=== PATIENT | male | born 1955 | race Caucasian/White ===

== ENCOUNTER 2016-06-19 17:27 | Emergency (ER) | payer BC ==
[2016-06-19 17:37] VITALS: BP 120/94
== END 2016-06-19 18:20 | disposition left against medical advice (07) ==
LOC: DL.ED 17:27
DX: Z53.21 Procedure and treatment not carried out due to patient leaving prior to being seen by health care provider (principal)

== ENCOUNTER 2016-11-17 12:29 | Emergency (ER) | payer BC ==
[2016-11-17 12:50] VITALS: BP 136/89
[2016-11-17] MEDS ORDERED: Ketorolac 30 MG/ML SDV IM ONE (13:00)
--- NOTE | 2016-11-17 13:22 | EDM.PDOC ---
ED HPI GENERAL MEDICAL PROBLEM - General Chief Complaint: Back Pain or Injury Stated Complaint: BACK PAIN Time Seen by Provider: 11/17/16 13:00 Source of Information: Reports: Patient History Limitations: Reports: No Limitations - History of Present Illness INITIAL COMMENTS - FREE TEXT/NARRATIVE: Patient comes emergency Department today with complaints of left-sided mid thoracic back pain that has been going on for the past 2 days. 2 days ago the patient was at work when he was lifting up a 50 pound item and twisting with his back and suddenly developed sharp shooting stabbing pain in his left lateral mid thoracic region of his back. He was seen in the clinic yesterday and had x-rays completed. He was told that the x-rays were negative for acute bony abnormality or fracture. He was given a prescription of Flexeril which he did not take. He did have some hydrocodone's at home that he has been taking overnight which is done okay for his pain management. He denies any change in the functionality of his lower extremities. He denies any numbness or tingling to his lower extremes. He denies any change in his bowel or bladder habits. He denies any other injury to his back. He denies any hematuria dysuria or urinary frequency. Also denies a history of kidney stones. His pain started exactly while he was doing a twisting motion lifting up to 50 pound heavy object at work. Left Posterior Back Pain Score (Numeric/FACES): 8 - Related Data Allergies Allergy/AdvReac Type Severity Reaction Status Date / Time chlordiazepoxide Allergy Itching Verified 12/29/15 09:57 [From Librax (with clidinium)] clidinium Allergy Itching Verified 12/29/15 09:57 [From Librax (with clidinium)] lithium Allergy Vomiting Verified 12/29/15 09:57 Home Meds: Home Meds lamoTRIgine [Lamictal] 100 mg PO BID 03/13/14 [History] Acetaminophen [Tylenol Extra Strength] 1,500 mg PO Q4HR PRN 06/09/14 [History] Ibuprofen [Motrin] 200 mg PO Q6H PRN 06/09/14 [History] Sertraline [Zoloft] 50 mg PO DAILY 08/28/14 [History] Cyclobenzaprine [Flexeril] 1 - 2 tab PO QID PRN 12/27/15 [History] Fluticasone Propionate [Flonase] 1 - 2 spray NASBOTH BID PRN 12/27/15 [History] Ketorolac [Toradol] 1 tab PO Q6H 12/27/15 [History] Naproxen [Naprosyn] 1 tab PO ASDIRECTED 12/27/15 [History] Pseudoephedrine HCl [Sudafed] 1 tab PO Q4H PRN 12/27/15 [History] SUMAtriptan Succinate [Imitrex] 1 tab PO ASDIRECTED 12/27/15 [History] Zolpidem [Ambien] 1 - 2 tab PO BEDTIME 12/27/15 [History] oxyCODONE HCl/Acetaminophen [Percocet 5-325 mg Tablet] 1 tab PO Q6H PRN [History] traMADol [Ultram] 1 tab PO ASDIRECTED PRN 12/27/15 [History] Gabapentin [Gabapentin] 300 mg PO TID 06/19/16 [History] lamoTRIgine [Lamotrigine] 100 mg PO DAILY 06/19/16 [History] Past Medical History - Past Health History Medical/Surgical History: Denies Medical/Surgical History HEENT History: Reports: Impaired Vision Cardiovascular History: Reports: None Respiratory History: Reports: None Gastrointestinal History: Reports: None, Hemorrhoids Genitourinary History: Reports: Other (See Below) Other Genitourinary History: chronic epidydimitis, genital herpes Musculoskeletal History: Reports: None Neurological History: Reports: Migraines, Seizure, Other (See Below) Other Neuro History: insomnia, last seizure 5-6 yrs ago (2009) Psychiatric History: Reports: None Endocrine/Metabolic History: Reports: None Hematologic History: Reports: None Immunologic History: Reports: None Oncologic (Cancer) History: Reports: None Dermatologic History: Reports: None - Infectious Disease History Infectious Disease History: Reports: Chicken Pox - Past Surgical History Head Surgeries/Procedures: Reports: None HEENT Surgical History: Reports: Adenoidectomy, Naso-Sinus Surgery, Tonsillectomy GI Surgical History: Reports: Colonoscopy, Hernia Repair/Other, Other (See Below ) Male Surgical History: Reports: TURP-Transurethral Resection of Prostate, Vasectomy, Other (See Below) Musculoskeletal Surgical History: Reports: Shoulder Surgery, Other (See Below) Social & Family History - Family History Family Medical History: Noncontributory HEENT: Reports: None Cardiac: Reports: Hypertension Respiratory: Reports: None GI: Reports: None : Reports: None OBGYN: Reports: None Musculoskeletal: Reports: None Neurological: Reports: Alzheimers Disease, Dementia Psychiatric: Reports: None Endocrine/Metabolic: Reports: None Hematologic: Reports: None Immunologic: Reports: None Oncologic: Reports: Bone - Tobacco Use Smoking Status *Q: Never Smoker Used Tobacco, but Quit: Yes Month Tobacco Last Used: 05/31/97 Second Hand Smoke Exposure: No - Caffeine Use Caffeine Use: Reports: Coffee - Alcohol Use Days Per Week of Alcohol Use: 0 - Recreational Drug Use Recreational Drug Use: No - Living Situation & Occupation Living situation: Reports: , Alone ED ROS GENERAL - Review of Systems Review Of Systems: ROS reveals no pertinent complaints other than HPI. ED EXAM,LOWER BACK PAIN/INJURY - Physical Exam Exam: See Below Exam Limited By: No Limitations General Appearance: Alert, WD/WN Eye Exam: Bilateral Eye: Normal Inspection Head: Atraumatic, Normocephalic Neck: Normal Inspection, Supple, Non-Tender, Full Range of Motion Respiratory/Chest: No Respiratory Distress, Lungs Clear, Normal Breath Sounds, No Accessory Muscle Use, Chest Non-Tender Cardiovascular: Normal Peripheral Pulses, Regular Rate, Rhythm GI/Abdominal: Normal Bowel Sounds, Soft, No Organomegaly, No Distention (Male) Exam: Deferred Rectal (Males) Exam: Deferred Back Exam: Normal Inspection, Full Range of Motion, Other (No bruising swelling ecchymosis. There is some mild tenderness on the mid thoracic left-sided posterior midaxillary line. There is no bruising swelling ecchymosis or crepitus.). No: CVA Tenderness (L), CVA Tenderness (R), Muscle Spasm, Paraspinal Tenderness, Vertebral Tenderness Extremities: Normal Inspection, Normal Range of Motion, Non-Tender, No Pedal Edema, Normal Capillary Refill Neurological: Alert, Normal Mood/Affect, Normal Dorsiflexion, CN II-XII Intact, Normal Plantar Flexion, Normal Reflexes, No Motor/Sensory Deficits, Oriented x 3 , Other (Negative straight leg raise.) DTR - Lower Extremities: 2+: Knee (R), Knee (L), Ankle (R), Ankle (L) Psychiatric: Normal Affect, Normal Mood Skin Exam: Warm, Dry, Intact, Normal Color Lymphatic: No Adenopathy Course - Vital Signs Last Recorded V/S: Last Vital Signs Temp 36.1 C 11/17/16 12:49 Pulse 77 11/17/16 12:49 Resp 16 11/17/16 12:49 BP 136/89 11/17/16 12:49 Pulse Ox 98 11/17/16 12:49 - Orders/Labs/Meds Orders: Active Orders 24 hr Category Date Time Status Orphenadrine [Norflex] Med 11/17/16 13:00 Active 60 mg IM Q12H Medication Orders Orphenadrine Citrate (Norflex) 60 mg IM Q12H JOSEF Last Admin: 11/17/16 13:12 Dose: 60 mg Meds: Medications Generic Name Dose Route Start Last Admin Trade Name Freq PRN Reason Stop Dose Admin Orphenadrine Citrate 60 mg 11/17/16 13:00 11/17/16 13:12 Norflex IM 60 mg Q12H JOSEF Administration Discontinued Medications Generic Name Dose Route Start Last Admin Trade Name Freq PRN Reason Stop Dose Admin Ketorolac Tromethamine 30 mg 11/17/16 13:00 11/17/16 13:13 Toradol IM 11/17/16 13:01 30 mg ONETIME ONE Administration - Re-Assessments/Exams Free Text/Narrative Re-Assessment/Exam: 11/17/16 13:23 Ketorolac 30 mg IM. Orphenadrine 60 mg IM. 11/17/16 13:44 I was able to review the patient's chart and [facility] x-rays did not show any acute bony abnormality. And the patient did deny Flexeril at that time. He was sent home on conservative management. Following the above therapy as pain was somewhat improved although we are limited on what we can do for his pain as he is driving himself today. We'll discharge him home with Flexeril and a very small amount of hydrocodone to get him through the next couple of days. He was comfortable with the plan and his questions are answered. Departure - Departure Time of Disposition: 13:45 Disposition: Home, Self-Care 01 Clinical Impression: Muscle strain of left upper back Qualifiers: Encounter type: initial encounter Qualified Code(s): S29.012A - Strain of muscle and tendon of back wall of thorax, initial encounter - Discharge Information Instructions: Back Injury Prevention, [id number], Muscle Strain, [id number] , Back Pain, Adult, [id number] Forms: ED Department Discharge Additional Instructions: Tylenol and/or ibuprofen as needed for pain. If pain not controlled with above, [place] 5/325, 1 tab by mouth every 6 hrs with food as needed for pain. Caution sedation. RX given to the patient. Flexeril 10 mg 1 tab 3 times a day as needed for muscle spasms or pain. Caution sedation. Rx given to patient. Heat or ice to the affected area whichever is best for you aggressively over the next 72 hours. Continue to keep mobile do not do too much nor too little as he makes exacerbate your injury by doing too much and he may become stiff if he due to little. This may take a couple of weeks to completely resolve. Return to the emergency department if new or worsening symptoms. Recheck with her primary care provider in the next 4-6 days if not improving sooner if worse. - My Orders Last 24 Hours: My Active Orders 11/17/16 13:00 Orphenadrine [Norflex] 60 mg IM Q12H - Assessment/Plan Last 24 Hours: My Active Orders 11/17/16 13:00 Orphenadrine [Norflex] 60 mg IM Q12H Assessment:: Muscle spasm left mid thoracic SP twisting injury. Plan: Tylenol and/or ibuprofen as needed for pain. If pain not controlled with above, [place] 5/325, 1 tab by mouth every 6 hrs with food as needed for pain. Caution sedation. RX given to the patient. Flexeril 10 mg 1 tab 3 times a day as needed for muscle spasms or pain. Caution sedation. Rx given to patient. Heat or ice to the affected area whichever is best for you aggressively over the next 72 hours. Continue to keep mobile do not do too much nor too little as he makes exacerbate your injury by doing too much and he may become stiff if he due to little. This may take a couple of weeks to completely resolve. Return to the emergency department if new or worsening symptoms. Recheck with her primary care provider in the next 4-6 days if not improving sooner if worse.
== END 2016-11-17 14:20 | disposition home or self-care (01) ==
LOC: DL.ED 12:29
DX: S29.012A Strain of muscle and tendon of back wall of thorax, initial encounter (principal); Z98.890 Other specified postprocedural states; Z87.891 Personal history of nicotine dependence; Z79.899 Other long term (current) drug therapy; Z88.8 Allergy status to other drugs, medicaments and biological substances; X50.1XXA Overexertion from prolonged static or awkward postures, initial encounter; Y99.0 Civilian activity done for income or pay
CPT/HCPCS: 96372; 99283; J1885; J2360

== ENCOUNTER 2017-05-26 17:47 | Emergency (ER) | payer BC ==
[2017-05-26 18:10] VITALS: BP 152/84
[2017-05-26] MEDS ORDERED: Diazepam 5 MG/ML 10 ML Vial MDV IM ONE (18:26)
[2017-05-26] MEDS ORDERED: Dexamethasone 4 MG/ML SDV IM ONE (18:27)
--- NOTE | 2017-05-26 18:40 | EDM.PDOC ---
Scribed by Crystal Sosa 05/26/17 1840 for Shailesh Jones MD ED HPI GENERAL MEDICAL PROBLEM - General Chief Complaint: Back Pain or Injury Stated Complaint: [id number] BACK SPASMS Time Seen by Provider: 05/26/17 18:15 Source of Information: Reports: Patient, RN, RN Notes Reviewed History Limitations: Reports: No Limitations - History of Present Illness INITIAL COMMENTS - FREE TEXT/NARRATIVE: Patient complains of severe muscle spasms in the low back that started yesterday , but much worse today. He denies any recent lifting or injury. He does state that he has had similar muscle spasms in the past without injury. Denies any radiating pain, saddle area numbness, tingling or motor weakness. Patient has been taking prescribed muscle relaxers and NSAIDs without relieve. Onset Date: 05/25/17 Duration: Getting Worse Location: Reports: Back Quality: Reports: Ache Severity: Severe Improves with: Reports: None Worsens with: Reports: None Associated Symptoms: Reports: No Other Symptoms Lower Back Pain Score (Numeric/FACES): 8 - Related Data Allergies Allergy/AdvReac Type Severity Reaction Status Date / Time chlordiazepoxide Allergy Itching Verified 05/26/17 18:07 [From Librax (with clidinium)] clidinium Allergy Itching Verified 05/26/17 18:07 [From Librax (with clidinium)] lithium Allergy Vomiting Verified 05/26/17 18:07 Home Meds: Home Meds lamoTRIgine [Lamictal] 100 mg PO BID 03/13/14 [History] Acetaminophen [Tylenol Extra Strength] 1,500 mg PO Q4HR PRN 06/09/14 [History] Ibuprofen [Motrin] 200 mg PO Q6H PRN 06/09/14 [History] Sertraline [Zoloft] 50 mg PO DAILY 08/28/14 [History] Cyclobenzaprine [Flexeril] 1 - 2 tab PO QID PRN 12/27/15 [History] Fluticasone Propionate [Flonase] 1 - 2 spray NASBOTH BID PRN 12/27/15 [History] Ketorolac [Toradol] 1 tab PO Q6H 12/27/15 [History] Naproxen [Naprosyn] 1 tab PO ASDIRECTED 12/27/15 [History] Pseudoephedrine HCl [Sudafed] 1 tab PO Q4H PRN 12/27/15 [History] SUMAtriptan Succinate [Imitrex] 1 tab PO ASDIRECTED 12/27/15 [History] Zolpidem [Ambien] 1 - 2 tab PO BEDTIME 12/27/15 [History] oxyCODONE HCl/Acetaminophen [Percocet 5-325 mg Tablet] 1 tab PO Q6H PRN [History] traMADol [Ultram] 1 tab PO ASDIRECTED PRN 12/27/15 [History] Gabapentin 300 mg PO TID 06/19/16 [History] lamoTRIgine [Lamotrigine] 100 mg PO DAILY 06/19/16 [History] Past Medical History - Past Health History Medical/Surgical History: Denies Medical/Surgical History HEENT History: Reports: Impaired Vision Cardiovascular History: Reports: None Respiratory History: Reports: None Gastrointestinal History: Reports: None, Hemorrhoids Genitourinary History: Reports: Other (See Below) Other Genitourinary History: chronic epidydimitis, genital herpes Musculoskeletal History: Reports: None, Back Pain, Chronic Neurological History: Reports: Migraines, Seizure, Other (See Below) Other Neuro History: insomnia, last seizure 5-6 yrs ago (2009) Psychiatric History: Reports: Depression Endocrine/Metabolic History: Reports: None Hematologic History: Reports: None Immunologic History: Reports: None Oncologic (Cancer) History: Reports: None Dermatologic History: Reports: None - Infectious Disease History Infectious Disease History: Reports: Chicken Pox - Past Surgical History Head Surgeries/Procedures: Reports: None HEENT Surgical History: Reports: Adenoidectomy, Naso-Sinus Surgery, Tonsillectomy GI Surgical History: Reports: Colonoscopy, Hernia, Inguinal, Hernia Repair/Other , Other (See Below) Male Surgical History: Reports: TURP-Transurethral Resection of Prostate, Vasectomy, Other (See Below) Musculoskeletal Surgical History: Reports: Shoulder Surgery, Other (See Below) Social & Family History - Family History Family Medical History: Noncontributory HEENT: Reports: None Cardiac: Reports: Hypertension Respiratory: Reports: None GI: Reports: None : Reports: None OBGYN: Reports: None Musculoskeletal: Reports: None Neurological: Reports: Alzheimers Disease, Dementia Psychiatric: Reports: None Endocrine/Metabolic: Reports: None Hematologic: Reports: None Immunologic: Reports: None Oncologic: Reports: Bone - Tobacco Use Smoking Status *Q: Never Smoker Used Tobacco, but Quit: Yes Month/Year Tobacco Last Used: 05/31/97 Second Hand Smoke Exposure: No - Caffeine Use Caffeine Use: Reports: Coffee, Soda - Alcohol Use Days Per Week of Alcohol Use: 0 - Recreational Drug Use Recreational Drug Use: No - Living Situation & Occupation Living situation: Reports: , Alone ED ROS GENERAL - Review of Systems Review Of Systems: ROS reveals no pertinent complaints other than HPI. ED EXAM,LOWER BACK PAIN/INJURY - Physical Exam Exam: See Below Exam Limited By: No Limitations General Appearance: Alert, WD/WN, No Apparent Distress Head: Atraumatic, Normocephalic Neck: Full Range of Motion Respiratory/Chest: No Respiratory Distress, Lungs Clear, Normal Breath Sounds, No Accessory Muscle Use, Chest Non-Tender Cardiovascular: Normal Peripheral Pulses, Regular Rate, Rhythm, No Edema, No Gallop, No JVD, No Murmur, No Rub GI/Abdominal: Normal Bowel Sounds, Soft, Non-Tender, No Organomegaly, No Distention, No Abnormal Bruit, No Mass (Male) Exam: Deferred Rectal (Males) Exam: Deferred Back Exam: Decreased Range of Motion (lumbar/lumbosacral), Muscle Spasm (lumbar generalized regional), Paraspinal Tenderness (lumbar). No: CVA Tenderness (L), CVA Tenderness (R), Vertebral Tenderness Extremities: Normal Inspection, Normal Range of Motion, Non-Tender, No Pedal Edema, Normal Capillary Refill Neurological: Alert, Normal Mood/Affect, Normal Dorsiflexion, CN II-XII Intact, Normal Plantar Flexion, Normal Gait, No Motor/Sensory Deficits, Oriented x 3 Psychiatric: Normal Affect, Normal Mood Skin Exam: Warm, Dry, Intact, Normal Color, No Rash Course - Vital Signs Last Recorded V/S: Last Vital Signs Temp 36.7 C 05/26/17 18:08 Pulse 62 05/26/17 18:08 Resp 18 05/26/17 18:08 BP 152/84 H 05/26/17 18:08 Pulse Ox 99 05/26/17 18:08 - Orders/Labs/Meds Orders: Active Orders 24 hr Category Date Time Status Diazepam [Valium] Med 05/26/17 18:26 Once 10 mg IM ONETIME ONE Medication Orders Diazepam (Valium) 10 mg IM ONETIME ONE Stop: 05/26/17 18:27 Meds: Medications Generic Name Dose Route Start Last Admin Trade Name Freq PRN Reason Stop Dose Admin Diazepam 10 mg 05/26/17 18:26 Valium IM 05/26/17 18:27 ONETIME ONE Discontinued Medications Generic Name Dose Route Start Last Admin Trade Name Freq PRN Reason Stop Dose Admin Dexamethasone 10 mg 05/26/17 18:27 Dexamethasone IM 05/26/17 18:28 ONETIME ONE Departure - Departure Time of Disposition: 18:37 Disposition: Home, Self-Care 01 Condition: Fair Clinical Impression: Lumbar paraspinal muscle spasm - Discharge Information Instructions: Muscle Cramps and Spasms, [id number], Back Pain, Adult, Easy-to -Read Forms: ED Department Discharge Additional Instructions: Rx: Diazepam 5mg *Do not drive or work while under the influence of this medication. Rx: Decadron 4mg Moist heating pad to area of muscle spasms. Follow up in clinic if not improved in 2 to 3 days. - My Orders Last 24 Hours: My Active Orders 05/26/17 18:26 Diazepam [Valium] 10 mg IM ONETIME ONE - Assessment/Plan Last 24 Hours: My Active Orders 05/26/17 18:26 Diazepam [Valium] 10 mg IM ONETIME ONE I have read and agree with the documentation that has been completed regarding this visit. By signing this record, I attest that the documentation was completed in my physical presence and is an accurate record of the encounter.
== END 2017-05-26 19:35 | disposition home or self-care (01) ==
LOC: DL.ED 17:47
DX: M62.830 Muscle spasm of back (principal); Z88.8 Allergy status to other drugs, medicaments and biological substances; Z79.899 Other long term (current) drug therapy; Z87.891 Personal history of nicotine dependence
CPT/HCPCS: 96372; 99283; J1100; J3360

== ENCOUNTER 2019-12-26 11:13 | Emergency (ER) | payer MEDICARE, BC ==
[2019-12-26] MEDS ORDERED: Dexamethasone 4 MG/ML SDV IM ONE (11:40)
--- NOTE | 2019-12-26 11:43 | EDM.PDOC ---
Scribed by Crystal Sosa 12/26/19 1139 for Shailesh Jones MD ED HPI GENERAL MEDICAL PROBLEM - General Chief Complaint: Back Pain or Injury Stated Complaint: SEVERE LOWER BACK PAIN, UNABLE TO WALK Time Seen by Provider: 12/26/19 11:33 Source of Information: Reports: Patient, RN, RN Notes Reviewed History Limitations: Reports: No Limitations - History of Present Illness INITIAL COMMENTS - FREE TEXT/NARRATIVE: Patient presents to the ED by POV with complaint of lower back pain. Patient states he was mopping yesterday at work and thinks he put it out then. Patient states he has history of back problems that flare up once or twice a year. Patient denies saddle anesthesia or numbness to lower extremities, radiating pain, or loss or bowel or bladder control. Patient rates pain at a 8/10. Able to walk with assistance to bed. Onset Date: 12/25/19 Duration: Getting Worse Location: Reports: Back Quality: Reports: Ache Severity: Moderate Improves with: Reports: None Worsens with: Reports: None Associated Symptoms: Reports: No Other Symptoms Lower Back Pain Score (Numeric/FACES): 8 - Related Data Allergies Allergy/AdvReac Type Severity Reaction Status Date / Time chlordiazepoxide Allergy Itching Verified 12/26/19 11:27 [From Librax (with clidinium)] clidinium Allergy Itching Verified 12/26/19 11:27 [From Librax (with clidinium)] lithium Allergy Vomiting Verified 12/26/19 11:27 Home Meds: Home Meds lamoTRIgine [Lamictal] 100 mg PO BID 03/13/14 [History] Acetaminophen [Tylenol Extra Strength] 1,500 mg PO Q4HR PRN 06/09/14 [History] Ibuprofen [Motrin] 200 mg PO Q6H PRN 06/09/14 [History] Sertraline [Zoloft] 50 mg PO DAILY 08/28/14 [History] Cyclobenzaprine [Flexeril] 1 - 2 tab PO QID PRN 12/27/15 [History] Fluticasone Propionate [Flonase] 1 - 2 spray NASBOTH BID PRN 12/27/15 [History] Ketorolac [Toradol] 1 tab PO Q6H 12/27/15 [History] Naproxen [Naprosyn] 1 tab PO ASDIRECTED 12/27/15 [History] Pseudoephedrine HCl [Sudafed] 1 tab PO Q4H PRN 12/27/15 [History] SUMAtriptan succinate [Imitrex] 1 tab PO ASDIRECTED 12/27/15 [History] Zolpidem [Ambien] 1 - 2 tab PO BEDTIME 12/27/15 [History] oxyCODONE HCl/Acetaminophen [Percocet 5-325 mg Tablet] 1 tab PO Q6H PRN 12/27/15 [History] traMADol [Ultram] 1 tab PO ASDIRECTED PRN 12/27/15 [History] Gabapentin 300 mg PO TID 06/19/16 [History] lamoTRIgine [Lamotrigine] 100 mg PO DAILY 06/19/16 [History] Past Medical History - Past Health History Medical/Surgical History: Denies Medical/Surgical History HEENT History: Reports: Impaired Vision Cardiovascular History: Reports: None Respiratory History: Reports: None Gastrointestinal History: Reports: None, Hemorrhoids Genitourinary History: Reports: Other (See Below) Other Genitourinary History: chronic epidydimitis, genital herpes Musculoskeletal History: Reports: None, Back Pain, Chronic Neurological History: Reports: Migraines, Seizure, Other (See Below) Other Neuro History: insomnia, last seizure 5-6 yrs ago (2009) Psychiatric History: Reports: Depression Endocrine/Metabolic History: Reports: None Hematologic History: Reports: None Immunologic History: Reports: None Oncologic (Cancer) History: Reports: None Dermatologic History: Reports: None - Infectious Disease History Infectious Disease History: Reports: Chicken Pox - Past Surgical History Head Surgeries/Procedures: Reports: None HEENT Surgical History: Reports: Adenoidectomy, Naso-Sinus Surgery, Tonsillectomy GI Surgical History: Reports: Colonoscopy, Hernia, Inguinal, Hernia Repair/Other, Other (See Below) Male Surgical History: Reports: TURP-Transurethral Resection of Prostate, Vasectomy, Other (See Below) Musculoskeletal Surgical History: Reports: Shoulder Surgery, Other (See Below) Social & Family History - Family History Family Medical History: Noncontributory HEENT: Reports: None Cardiac: Reports: Hypertension Respiratory: Reports: None GI: Reports: None : Reports: None OBGYN: Reports: None Musculoskeletal: Reports: None Neurological: Reports: Alzheimers Disease, Dementia Psychiatric: Reports: None Endocrine/Metabolic: Reports: None Hematologic: Reports: None Immunologic: Reports: None Oncologic: Reports: Bone - Caffeine Use Caffeine Use: Reports: Coffee, Soda - Living Situation & Occupation Living situation: Reports: , Alone ED ROS GENERAL - Review of Systems Review Of Systems: Comprehensive ROS is negative, except as noted in HPI. ED EXAM,LOWER BACK PAIN/INJURY - Physical Exam Exam: See Below Exam Limited By: No Limitations General Appearance: Alert, WD/WN, No Apparent Distress Throat/Mouth: Normal Voice, No Airway Compromise Head: Atraumatic, Normocephalic Neck: Normal Inspection, Supple, Non-Tender, Full Range of Motion Respiratory/Chest: No Respiratory Distress Cardiovascular: Normal Peripheral Pulses, Regular Rate, Rhythm GI/Abdominal: Normal Bowel Sounds, Soft, Non-Tender, No Organomegaly, No Distention, No Abnormal Bruit, No Mass (Male) Exam: Deferred Rectal (Males) Exam: Deferred Back Exam: Decreased Range of Motion, Muscle Spasm, Paraspinal Tenderness. No: CVA Tenderness (L), CVA Tenderness (R), Vertebral Tenderness Extremities: Normal Inspection, Normal Range of Motion, Non-Tender, No Pedal Edema, Normal Capillary Refill Neurological: Alert, Normal Mood/Affect, Normal Dorsiflexion, CN II-XII Intact, Normal Plantar Flexion, Normal Reflexes, No Motor/Sensory Deficits, Oriented x 3 Psychiatric: Normal Affect, Normal Mood Skin Exam: Warm, Dry, Intact, Normal Color, No Rash Course - Orders/Labs/Meds Meds: Medications Discontinued Medications Generic Name Dose Route Start Last Admin Trade Name Vern PRN Reason Stop Dose Admin Dexamethasone 8 mg 12/26/19 11:40 Decadron IM 12/26/19 11:41 ONETIME ONE Diazepam 10 mg 12/26/19 11:40 Valium IM 12/26/19 11:41 ONETIME ONE Departure - Departure Time of Disposition: 12:00 Disposition: Home, Self-Care 01 Condition: Good Clinical Impression: Acute exacerbation of chronic low back pain, Spasm of lumbar paraspinous muscle, Strain of muscle, fascia and tendon of lower back, initial encounter - Discharge Information *PRESCRIPTION DRUG MONITORING PROGRAM REVIEWED*: No *COPY OF PRESCRIPTION DRUG MONITORING REPORT IN PATIENT MYNOR: No Instructions: Muscle Cramps and Spasms, Acute Back Pain, Adult, Back Injury Prevention Forms: ED Department Discharge Additional Instructions: Rx: Decadron 4mg Rx: Diazepam 5mg Apply moist heat/hot packs to area of back pain/spasm. Light activity only, avoid twisting, bending, stooping, or lifting for 5 to 7 days. I have read and agree with the documentation that has been completed regarding this visit. By signing this record, I attest that the documentation was completed in my physical presence and is an accurate record of the encounter.
[2019-12-26 13:11] VITALS: BP 139/103; PULSE 75
== END 2019-12-26 12:04 | disposition home or self-care (01) ==
LOC: DL.ED 11:13
DX: S39.012A Strain of muscle, fascia and tendon of lower back, initial encounter (principal); F32.9 Major depressive disorder, single episode, unspecified; G43.909 Migraine, unspecified, not intractable, without status migrainosus; R56.9 Unspecified convulsions; Z91.048 Other nonmedicinal substance allergy status; Z79.899 Other long term (current) drug therapy; X50.9XXA Other and unspecified overexertion or strenuous movements or postures, initial encounter; Y99.0 Civilian activity done for income or pay
CPT/HCPCS: 96372; 99283; J1100; J3360

== ENCOUNTER 2020-07-03 11:33 | Emergency (ER) | payer MEDICARE, BC ==
[2020-07-03 12:07] VITALS: BP 126/89; PULSE 87
--- NOTE | 2020-07-03 12:45 | EDM.PDOC ---
ED HPI GENERAL MEDICAL PROBLEM - General Chief Complaint: Lower Extremity Injury/Pain Stated Complaint: PULLED SOMETHING IN KNEE Time Seen by Provider: 07/03/20 12:40 Source of Information: Reports: Patient, RN, RN Notes Reviewed History Limitations: Reports: No Limitations - History of Present Illness INITIAL COMMENTS - FREE TEXT/NARRATIVE: Elizabeth is a 65 y/o male who presents to the ED via personal vehicle with complaints of pain to his left medial, posterior knee. The patient reports he has been experiencing pain diffuse to this knee for about two months. He has been to his primary care provider for this problem who recommended a brace a physical therapy, neither of which the patient has done. He reports he was moving a couch this morning up the stairs in his home and heard a "..crunch" from his knee. He experienced immediate sharp pain to his medial knee. He reports pain with extension and flexion of the joint and is unable to comfortably bear weight on this extremity d/t pain. He has taken Aspirin and Tylenol for analgesia which has offered him little relief of symptoms. He denies history of injury to this extremity. Left Knee Pain Score (Numeric/FACES): 8 - Related Data Allergies Allergy/AdvReac Type Severity Reaction Status Date / Time chlordiazepoxide Allergy Itching Verified 07/03/20 12:04 [From Librax (with clidinium)] clidinium Allergy Itching Verified 07/03/20 12:04 [From Librax (with clidinium)] lithium Allergy Vomiting Verified 07/03/20 12:04 Home Meds: Home Meds Acetaminophen [Tylenol] 975 mg PO Q6H 06/07/20 [History] Amitriptyline [Elavil] 20 mg PO BEDTIME 06/07/20 [History] Cyclobenzaprine [Flexeril] 10 mg PO TID PRN 06/07/20 [History] Famciclovir 500 mg PO TID 06/07/20 [History] Fluticasone Propionate [Flonase] 2 spray INH DAILY 06/07/20 [History] HYDROcodone/Ibuprofen [Hydrocodone-Ibuprofen 7.5-200] 1 tab PO Q8H 06/07/20 [History] Lansoprazole [Prevacid] 30 mg PO BID 06/07/20 [History] Metoprolol Succinate [Toprol Xl] 50 mg PO DAILY 06/07/20 [History] Mupirocin Oint [Bactroban Oint] 1 unit TOP TID PRN 06/07/20 [History] Oxybutynin Chloride [Ditropan Xl] 10 mg PO DAILY 06/07/20 [History] Rizatriptan Benzoate [Rizatriptan] 10 mg PO ASDIRECTED 06/07/20 [History] SUMAtriptan succinate [Imitrex] 100 mg PO ASDIRECTED PRN 06/07/20 [History] Tamsulosin [Flomax] 0.4 mg PO BEDTIME 06/07/20 [History] diazePAM [Valium.] 5 mg PO Q8H 06/07/20 [History] lamoTRIgine [Lamotrigine] 100 mg PO BID 06/07/20 [History] traZODone 50 mg PO BEDTIME 06/07/20 [History] Past Medical History - Past Health History Medical/Surgical History: Denies Medical/Surgical History HEENT History: Reports: Impaired Vision Cardiovascular History: Reports: None Respiratory History: Reports: None Gastrointestinal History: Reports: Hemorrhoids Genitourinary History: Reports: Other (See Below) Other Genitourinary History: chronic epidydimitis, genital herpes Musculoskeletal History: Reports: Arthritis, Back Pain, Chronic Neurological History: Reports: Migraines, Seizure, Other (See Below) Other Neuro History: insomnia, last seizure 5-6 yrs ago (2009) Psychiatric History: Reports: Depression Endocrine/Metabolic History: Reports: None Hematologic History: Reports: None Immunologic History: Reports: None Oncologic (Cancer) History: Reports: None Dermatologic History: Reports: None - Infectious Disease History Infectious Disease History: Reports: Chicken Pox, Novel Coronavirus - Past Surgical History Head Surgeries/Procedures: Reports: None HEENT Surgical History: Reports: Adenoidectomy, Naso-Sinus Surgery, Tonsillectomy Cardiovascular Surgical History: Reports: None Respiratory Surgical History: Reports: None GI Surgical History: Reports: Colonoscopy, Hernia, Inguinal, Hernia Repair/Other, Other (See Below) Other GI Surgeries/Procedures: rectal fissure Male Surgical History: Reports: TURP-Transurethral Resection of Prostate, Vasectomy, Other (See Below) Other Male Surgeries/Procedures: bladder cystoscopy, epididymis surg (excision R epididymis) Endocrine Surgical History: Reports: None Neurological Surgical History: Reports: None Musculoskeletal Surgical History: Reports: Shoulder Surgery, Other (See Below) Other Musculoskeletal Surgeries/Procedures:: surgery on thumb Social & Family History - Family History Family Medical History: No Pertinent Family History HEENT: Reports: None Cardiac: Reports: Hypertension Respiratory: Reports: None GI: Reports: None : Reports: None OBGYN: Reports: None Musculoskeletal: Reports: None Neurological: Reports: Alzheimers Disease, Dementia Psychiatric: Reports: None Endocrine/Metabolic: Reports: None Hematologic: Reports: None Immunologic: Reports: None Oncologic: Reports: Bone - Tobacco Use Tobacco Use Status *Q: Former Tobacco User Used Tobacco, but Quit: Yes Month/Year Tobacco Last Used: unkn. 24 years ago - Caffeine Use Caffeine Use: Reports: Coffee, Soda - Living Situation & Occupation Living situation: Reports: , Alone Review of Systems - Review of Systems Review Of Systems: Comprehensive ROS is negative, except as noted in HPI. ED EXAM, GENERAL - Physical Exam Exam: See Below Exam Limited By: No Limitations General Appearance: Alert, No Apparent Distress Eye Exam: Bilateral Eye: EOMI, Normal Inspection, PERRL (3mm) Throat/Mouth: Normal Inspection, Normal Oropharynx, Normal Voice, No Airway Compromise Respiratory/Chest: No Respiratory Distress, Lungs Clear, Normal Breath Sounds, No Accessory Muscle Use, Chest Non-Tender Cardiovascular: Normal Peripheral Pulses, Regular Rate, Rhythm, No Edema, No Gallop, No JVD, No Murmur, No Rub Peripheral Pulses: 2+: Radial (L), Radial (R) Back Exam: Normal Inspection, Full Range of Motion Extremities: No Pedal Edema, Normal Capillary Refill, Joint Swelling (To left knee), Leg Pain (To left medial, inferior knee), Limited Range of Motion (To left knee). No: Increased Warmth, Pallor, Redness Neurological: Alert, Oriented, CN II-XII Intact, Normal Cognition, Normal Reflexes, No Motor/Sensory Deficits, Abnormal Gait (Limping gait favoring left knee) Psychiatric: Normal Affect, Normal Mood Skin Exam: Warm, Dry, Intact, Normal Color, No Rash. No: Ecchymosis, Erythema, Increased Warmth, Lymphangitis, Mottled, Pallor, Petechiae Lymphatic: No Adenopathy Course - Vital Signs Last Recorded V/S: Last Vital Signs Temp 96.4 F L 07/03/20 12:04 Pulse 87 05/16/21 12:04 Resp 16 07/03/20 12:04 BP 126/89 07/03/20 12:04 Pulse Ox 96 07/03/20 12:04 - Radiology Interpretation Free Text[facility]Narrative:: [facility] [place] [facility] Report Call: [phone] assistance Online chat: [email or web address] Name: ELIZABETH RUCKER Age: 65Years M Date: 07/03/2020 SSN: -- : 1955 Study: CR KNEE 3V LT Requesting Physician: Ann Jurado Images: 3 Addl Studies: Provided Clinical History: Twisted knee while moving furniture Contrast: Contrast Medium: Contrast Amount: Contrast Method: CONFIDENTIALITY STATEMENT This report is intended only for use by the referring physician, and only in accordance with law. If you received this in error, call [phone]. Page 1 of 1 PROCEDURE INFORMATION: Exam: XR Left Knee Exam date and time: 07/03/2020 12:46 PM Age: 65 years old Clinical indication: Pain; Knee; Left; Additional info: Twisted knee while moving furniture TECHNIQUE: Imaging protocol: XR Left knee. Views: 3 views. COMPARISON: No relevant prior studies available. FINDINGS: Bones/joints: Mild patellofemoral joint narrowing. Bones otherwise appear normal. Soft tissues: Normal. IMPRESSION: No acute findings. Thank you for allowing us to participate in the care of your patient. Dictated and Authenticated by: Debbie Wolf MD 07/03/2020 1:16 PM Central Time ([place] & [place]) - Re-Assessments/Exams Free Text/Narrative Re-Assessment/Exam: 07/03/20 Xray of knee negative for acute processes. Findings of examination and imaging reviewed with patient. Discussed supportive cares for acute/chronic knee pain, including physical therapy and brace as was previously recommended. Red flag signs and symptoms which would warrant reevaluation discussed. Patient verbalized understanding and agreement with the plan of care. Departure - Departure Time of Disposition: 13:24 Disposition: Home, Self-Care 01 Condition: Good Clinical Impression: Chronic pain of left knee Left knee injury Qualifiers: Encounter type: initial encounter Qualified Code(s): S89.92XA - Unspecified injury of left lower leg, initial encounter - Discharge Information *PRESCRIPTION DRUG MONITORING PROGRAM REVIEWED*: Not Applicable *COPY OF PRESCRIPTION DRUG MONITORING REPORT IN PATIENT MYNOR: Not Applicable Instructions: Acute Knee Pain, Adult, [id number] Referrals: Noam Smith MD [Primary Care Provider] - Forms: ED Department Discharge Additional Instructions: 1.) You may take ibuprofen (Advil/Motrin) 400mg every six hours, as pain and swelling persists. You may also take acetaminophen (Tylenol) 650mg every six hours, as pain persists. You may stagger these medications so you are receiving a dose every three hours. 2.) You may apply ice to the affected area, as swelling persists; 20 minutes on every hour. 3.) Follow up with your primary care provider regarding today's visit as you may require an MRI. 4.) You may apply a compression brace to the knee for stability and comfort. 5.) Follow up with physical therapy to begin treatments. Sepsis Event Note (ED) - Evaluation Sepsis Screening Result: No Definite Risk
--- NOTE | 2020-07-03 13:16 | CR ---
PROCEDURE INFORMATION: Exam: XR Left Knee Exam date and time: 07/03/2020 12:46 PM Age: 65 years old Clinical indication: Pain; Knee; Left; Additional info: Twisted knee while moving furniture TECHNIQUE: Imaging protocol: XR Left knee. Views: 3 views. COMPARISON: No relevant prior studies available. FINDINGS: Bones/joints: Mild patellofemoral joint narrowing. Bones otherwise appear normal. Soft tissues: Normal. IMPRESSION: No acute findings.
== END 2020-07-03 13:45 | disposition home or self-care (01) ==
LOC: DL.ED 11:33
DX: M25.562 Pain in left knee (principal); G89.29 Other chronic pain; R56.9 Unspecified convulsions; Z88.8 Allergy status to other drugs, medicaments and biological substances; Z79.899 Other long term (current) drug therapy; Z87.891 Personal history of nicotine dependence
CPT/HCPCS: 73562-LT; 99282; 99283-25

== ENCOUNTER 2020-11-26 14:25 | Emergency (ER) | payer MEDICARE, BC ==
[2020-11-26 14:50] VITALS: BP 157/91; PULSE 55
--- NOTE | 2020-11-26 15:17 | EDM.PDOC ---
ED HPI GENERAL MEDICAL PROBLEM - General Chief Complaint: Upper Extremity Injury/Pain Stated Complaint: AMBULANCE Time Seen by Provider: 11/26/20 15:15 Source of Information: Reports: Patient History Limitations: Reports: Uncooperative - History of Present Illness INITIAL COMMENTS - FREE TEXT/NARRATIVE: Pt presents to ED via [facility] with c/o L) shoulder pain. Pt states that shoulder has been sore since he got [employer] COVID vaccine 3 weeks ago. Pt states that today his shoulder began hurting more, gradually, to the point where he cannot move it. Pt has not taken anything for the pain. Pt unable to rate pain on numeric scale. Pt is anxious, diaphoretic, and hyperventilating. Hx of anxiety, will not cooperate for an in depth HPI - Related Data Allergies Allergy/AdvReac Type Severity Reaction Status Date / Time chlordiazepoxide Allergy Itching Verified 11/26/20 14:39 [From Librax (with clidinium)] clidinium Allergy Itching Verified 11/26/20 14:39 [From Librax (with clidinium)] lithium Allergy Vomiting Verified 11/26/20 14:39 Home Meds: Home Meds Acetaminophen [Tylenol] 975 mg PO Q6H 06/07/20 [History] Amitriptyline [Elavil] 20 mg PO BEDTIME 06/07/20 [History] Cyclobenzaprine [Flexeril] 10 mg PO TID PRN 06/07/20 [History] Famciclovir 500 mg PO TID 06/07/20 [History] Fluticasone Propionate [Flonase] 2 spray INH DAILY 06/07/20 [History] HYDROcodone/Ibuprofen [Hydrocodone-Ibuprofen 7.5-200] 1 tab PO Q8H 06/07/20 [History] Lansoprazole [Prevacid] 30 mg PO BID 06/07/20 [History] Metoprolol Succinate [Toprol Xl] 50 mg PO DAILY 06/07/20 [History] Mupirocin Oint [Bactroban Oint] 1 unit TOP TID PRN 06/07/20 [History] Oxybutynin Chloride [Ditropan Xl] 10 mg PO DAILY 06/07/20 [History] Rizatriptan Benzoate [Rizatriptan] 10 mg PO ASDIRECTED 06/07/20 [History] SUMAtriptan succinate [Imitrex] 100 mg PO ASDIRECTED PRN 06/07/20 [History] Tamsulosin [Flomax] 0.4 mg PO BEDTIME 06/07/20 [History] diazePAM [Valium.] 5 mg PO Q8H 06/07/20 [History] lamoTRIgine [Lamotrigine] 100 mg PO BID 06/07/20 [History] traZODone 50 mg PO BEDTIME 06/07/20 [History] LORazepam [Ativan] 1 mg PO BEDTIME PRN 11/26/20 [History] Temazepam [Restoril] 15 mg PO DAILY 11/26/20 [History] Past Medical History - Past Health History Medical/Surgical History: Denies Medical/Surgical History HEENT History: Reports: Impaired Vision Cardiovascular History: Reports: None Respiratory History: Reports: None Gastrointestinal History: Reports: Hemorrhoids Genitourinary History: Reports: Other (See Below) Other Genitourinary History: chronic epidydimitis, genital herpes Musculoskeletal History: Reports: Arthritis, Back Pain, Chronic Neurological History: Reports: Migraines, Seizure, Other (See Below) Other Neuro History: insomnia, last seizure 5-6 yrs ago (2009) Psychiatric History: Reports: Anxiety, Depression, Panic Attack Endocrine/Metabolic History: Reports: None Hematologic History: Reports: None Immunologic History: Reports: None Oncologic (Cancer) History: Reports: None Dermatologic History: Reports: None - Infectious Disease History Infectious Disease History: Reports: Chicken Pox, Novel Coronavirus - Past Surgical History Head Surgeries/Procedures: Reports: None HEENT Surgical History: Reports: Adenoidectomy, Naso-Sinus Surgery, Tonsillectomy Cardiovascular Surgical History: Reports: None Respiratory Surgical History: Reports: None GI Surgical History: Reports: Colonoscopy, Hernia, Inguinal, Hernia Repair/Other, Other (See Below) Other GI Surgeries/Procedures: rectal fissure Male Surgical History: Reports: TURP-Transurethral Resection of Prostate, Vasectomy, Other (See Below) Other Male Surgeries/Procedures: bladder cystoscopy, epididymis surg (excision R epididymis) Endocrine Surgical History: Reports: None Neurological Surgical History: Reports: None Musculoskeletal Surgical History: Reports: Shoulder Surgery, Other (See Below) Other Musculoskeletal Surgeries/Procedures:: surgery on thumb Social & Family History - Family History Family Medical History: No Pertinent Family History HEENT: Reports: None Cardiac: Reports: Hypertension Respiratory: Reports: None GI: Reports: None : Reports: None OBGYN: Reports: None Musculoskeletal: Reports: None Neurological: Reports: Alzheimers Disease, Dementia Psychiatric: Reports: None Endocrine/Metabolic: Reports: None Hematologic: Reports: None Immunologic: Reports: None Oncologic: Reports: Bone - Tobacco Use Tobacco Use Status *Q: Never Tobacco User Second Hand Smoke Exposure: No - Caffeine Use Caffeine Use: Reports: None - Recreational Drug Use Recreational Drug Use: No - Living Situation & Occupation Living situation: Reports: , Alone Review of Systems - Review of Systems Review Of Systems: Comprehensive ROS is negative, except as noted in HPI. ED EXAM, GENERAL - Physical Exam Exam: See Below Exam Limited By: Uncooperative General Appearance: Anxious Eye Exam: Bilateral Eye: PERRL Nose: Normal Inspection, Normal Mucosa, No Blood Throat/Mouth: Normal Inspection, Normal Lips, Normal Teeth, Normal Gums, Normal Oropharynx, Normal Voice, No Airway Compromise Head: Atraumatic, Normocephalic Neck: Supple, Non-Tender Respiratory/Chest: Lungs Clear, Normal Breath Sounds Cardiovascular: Normal Peripheral Pulses, Regular Rate, Rhythm GI/Abdominal: Soft, Non-Tender Back Exam: Normal Inspection, Full Range of Motion Extremities: Normal Inspection, Normal Range of Motion, Non-Tender, Normal Capillary Refill, No Pedal Edema #1 Interpretation EKG Date: 11/26/20 Time: 14:31 Rhythm: Other (sinus ra) Rate (Beats/Min): 56 Course - Vital Signs Last Recorded V/S: Last Vital Signs Temp 98.7 F 11/26/20 14:43 Pulse 55 L 11/26/20 14:43 Resp 17 11/26/20 14:43 BP 157/91 H 11/26/20 14:43 Pulse Ox 98 11/26/20 14:43 - Orders/Labs/Meds Orders: Active Orders 24 hr Category Date Time Status EKG Documentation Completion [RC] STAT Care 11/26/20 14:49 Active Labs: Laboratory Tests 11/26/20 11/26/20 Range/Units 15:09 15:09 WBC 4.8 L (5.0-10.0) 10^3/uL RBC 4.83 (4.6-6.2) 10^6/uL Hgb 15.2 (14.0-18.0) g/dL Hct 44.1 (40.0-54.0) % MCV 91.3 (80-100) fL MCH 31.5 (27.0-34.0) pg MCHC 34.5 (33.0-35.0) g/dL Plt Count 264 (150-450) 10^3/uL Neut % (Auto) 71.3 (42.2-75.2) % Lymph % (Auto) 16.9 L (20.5-50.1) % [place] % (Auto) 10.6 H (2-8) % Eos % (Auto) 0.6 L (1.0-3.0) % Baso % (Auto) 0.6 (0.0-1.0) % Sodium 141 (136-145) mmol/L Potassium 3.7 (3.5-5.1) mmol/L Chloride 106 (98-107) mmol/L Carbon Dioxide 21 (21-32) mmol/L Anion Gap 17.7 H (7-13) mEq/L BUN 18 (7-18) mg/dL Creatinine 0.85 (0.70-1.30) mg/dL Est Cr Clr Drug Dosing TNP Estimated GFR (MDRD) > 60 BUN/Creatinine Ratio 21.2 (No establ ref range) Glucose 113 H (70-99) mg/dL Calcium 9.2 (8.5-10.1) mg/dL Total Bilirubin 0.5 (0.2-1.0) mg/dL AST 22 (15-37) U/L ALT 42 (16-63) U/L Alkaline Phosphatase 108 (46-116) U/L Troponin I High Sens 6 (<=76) pg/mL Total Protein 6.6 (6.4-8.2) g/dL Albumin 3.5 (3.4-5.0) g/dL Globulin 3.1 Albumin/Globulin Ratio 1.1 - Re-Assessments/Exams Free Text/Narrative Re-Assessment/Exam: 11/26/20 15:54 The pt is resting comfortably and conversant after no interventions. I discussed is labs and exam and he agrees he probably had a panic attack which is common for him. He reports his shoulder is still sore from the covid shot but he believes he can tolerate it and will use tylenol or motrin at home for pain. Departure - Departure Time of Disposition: 15:56 Disposition: Home, Self-Care 01 Condition: Good Clinical Impression: Anxiety Arm pain Qualifiers: Laterality: left Qualified Code(s): M79.602 - Pain in left arm - Discharge Information *PRESCRIPTION DRUG MONITORING PROGRAM REVIEWED*: Not Applicable *COPY OF PRESCRIPTION DRUG MONITORING REPORT IN PATIENT MYNOR: Not Applicable Instructions: Managing Anxiety, Adult Forms: ED Department Discharge Additional Instructions: Use tylenol or motrin for your shoulder pain. If any new symptoms or concerns develop contact your primary care facility ore return to the ER. Sepsis Event Note (ED) - Focused Exam Vital Signs: Vital Signs Temp Pulse Resp BP Pulse Ox 11/26/20 14:43 98.7 F 55 L 17 157/91 H 98 - My Orders Last 24 Hours: My Active Orders 11/26/20 14:49 EKG Documentation Completion [RC] STAT - Assessment/Plan Last 24 Hours: My Active Orders 11/26/20 14:49 EKG Documentation Completion [RC] STAT
[2020-11-26 15:46] LABS: ANION GAP 17.7 mEq/L (7-13); CHLORIDE,CL 106 mmol/L (98-107); SODIUM,NA 141 mmol/L (136-145)
== END 2020-11-26 16:04 | disposition home or self-care (01) ==
LOC: DL.ED 14:25
DX: F41.9 Anxiety disorder, unspecified (principal); M79.602 Pain in left arm; Z88.8 Allergy status to other drugs, medicaments and biological substances; Z79.899 Other long term (current) drug therapy
CPT/HCPCS: 36415; 80053; 84484; 85025; 99284-25

== ENCOUNTER 2021-04-24 05:48 | Day surgery (SDC) | payer MEDICARE, BC ==
[~2021-04-24 05:48] MED LIST: Sodium Chloride 0.9% 10 ML Syringe FLUSH SCH
[2021-04-24] MEDS ORDERED: fentaNYL 100 MCG/2 ML SDV IV ONE ×4 (05:49→07:28)
[2021-04-24] MEDS ORDERED: Midazolam 1 MG/ML 2 ML SDV IV ONE ×7 (05:49→07:23)
[2021-04-24] MEDS ORDERED: Sodium Chloride 0.9% 10 ML Syringe FLUSH PRN (06:00)
[2021-04-24] MEDS ORDERED: Dextrose 5%-0.45% NaCl 1,000 ML IV SCH (06:00)
[2021-04-24] MEDS ORDERED: fentaNYL 100 MCG/2 ML SDV ONE (06:11)
[2021-04-24] MEDS ORDERED: Midazolam 1 MG/ML 2 ML SDV ONE (06:11)
[2021-04-24 10:03] VITALS: BP 135/71; PULSE 49
== END 2021-04-24 09:40 | disposition home or self-care (01) ==
LOC: DL.ENDO 05:48
PROVIDERS: ATTEND Internal Medicine Gastroenterology
DX: D12.8 Benign neoplasm of rectum (principal); K64.8 Other hemorrhoids; K64.4 Residual hemorrhoidal skin tags; K57.30 Diverticulosis of large intestine without perforation or abscess without bleeding; F41.1 Generalized anxiety disorder; G40.909 Epilepsy, unspecified, not intractable, without status epilepticus; G47.00 Insomnia, unspecified; Z98.890 Other specified postprocedural states; Z88.8 Allergy status to other drugs, medicaments and biological substances; Z01.812 Encounter for preprocedural laboratory examination; Z20.822 Contact with and (suspected) exposure to COVID-19
CPT/HCPCS: 45385; J2250; J3010; J7042; U0002; 88305

== ENCOUNTER 2022-09-16 09:59 | Emergency (ER) | payer MEDICARE, BC ==
[2022-09-16 10:18] VITALS: BP 122/70; PULSE 62
[2022-09-16] MEDS ORDERED: Fluorescein 1 MG Ophth Strip EYEBOTH ONE (11:35)
[2022-09-16] MEDS ORDERED: Tetracaine HCl/PF 0.5% 4 ML Bottle EYEBOTH ONE (11:35)
[2022-09-16] MEDS ORDERED: Gentamicin 0.3% Ophth Soln 5 ML Bottle EYEBOTH ONE (12:06)
== END 2022-09-16 12:40 | disposition home or self-care (01) ==
LOC: DL.ED 09:59
DX: S05.01XA Injury of conjunctiva and corneal abrasion without foreign body, right eye, initial encounter (principal); S05.02XA Injury of conjunctiva and corneal abrasion without foreign body, left eye, initial encounter; I10 Essential (primary) hypertension; Z79.899 Other long term (current) drug therapy; Z86.16 Personal history of COVID-19; Z91.048 Other nonmedicinal substance allergy status; Z88.8 Allergy status to other drugs, medicaments and biological substances
CPT/HCPCS: 99283; A9270; J3490

== ENCOUNTER 2024-01-06 08:49 | Emergency (ER) | payer MEDICARE, BC ==
[2024-01-06] MEDS: Ketorolac 30 MG/ML SDV IM ONE (09:31)
[2024-01-06 10:13] VITALS: BP 130/85; PULSE 85
== END 2024-01-06 10:00 | disposition home or self-care (01) ==
LOC: DL.ED 08:49
DX: R07.89 Other chest pain (principal); I10 Essential (primary) hypertension; Z86.16 Personal history of COVID-19; Z88.8 Allergy status to other drugs, medicaments and biological substances; Z79.899 Other long term (current) drug therapy
CPT/HCPCS: 71046; 96372; 99283; J1885

== ENCOUNTER 2024-01-17 11:50 | Emergency (ER) | payer MEDICARE, BC ==
[2024-01-17] MEDS: Aspirin 81 MG Tab.Chew PO ONE (12:39)
[2024-01-17 12:45] LABS: BASOPHILS PERCENT AUTO 0.2 % (0.0-1.0); EOSINOPHILS PERCENT AUTO 0.2 % (1.0-3.0); HEMATOCRIT 41.8 % (40.0-54.0); HEMOGLOBIN 14.1 g/dL (14.0-18.0); LYMPHOCYTES PERCENT AUTO 11.6 % (20.5-50.1); MEAN CORPUSCULAR HEMOGLOBIN 33.3 pg (27.0-34.0); MEAN CORPUSCULAR HGB CONC 33.7 g/dL (33.0-35.0); MEAN CORPUSCULAR VOLUME 98.6 fL (80-100); MONOCYTES PERCENT AUTO 9.6 % (2-8); NEUTROPHILS PERCENT AUTO 78.4 % (42.2-75.2); PLATELET COUNT,PLT 218 10^3/uL (150-450); RED BLOOD CELL COUNT 4.24 10^6/uL (4.6-6.2); WHITE BLOOD CELL COUNT,WBC 4.5 10^3/uL (5.0-10.0)
[2024-01-17 13:06] LABS: PROTHROMBIN TIME 10.3 SEC (9.0-12.0); PTT,PARTIAL THROMBOPLSTIN TIME 23.3 SEC (22.0-34.0)
[2024-01-17 13:08] LABS: A/G RATIO 1.2; ALANINE AMINOTRANSFERASE,ALT 20 U/L (16-63); ALBUMIN 3.6 g/dL (3.4-5.0); ALKALINE PHOSPHATASE 106 U/L (46-116); ANION GAP 13.2 mEq/L (7-13); ASPARTATE AMNIOTRANSFERASE,AST 13 U/L (15-37); BILIRUBIN TOTAL 0.5 mg/dL (0.2-1.0); BLOOD UREA NITROGEN,BUN 15 mg/dL (7-18); BUN/CREATININE RATIO 17.2 (No establ ref range); CALCIUM 9.1 mg/dL (8.5-10.1); CARBON DIOXIDE,CO2 26 mmol/L (21-32); CHLORIDE,CL 106 mmol/L (98-107); CREATININE 0.87 mg/dL (0.70-1.30); EST CRCL DRUG DOSING (CG) 74.92 mL/min; GLUCOSE RANDOM 98 mg/dL (70-99); POTASSIUM,K 4.2 mmol/L (3.5-5.1); PROTEIN TOTAL,TP 6.5 g/dL (6.4-8.2); SODIUM,NA 141 mmol/L (136-145)
[2024-01-17 13:14] LABS: ESTIMATED GFR 93 mL/min (>=60)
[2024-01-17 13:28] VITALS: BP 147/81; PULSE 49
== END 2024-01-17 15:00 | disposition home or self-care (01) ==
LOC: DL.ED 11:50
DX: S22.21XD Fracture of manubrium, subsequent encounter for fracture with routine healing (principal); I10 Essential (primary) hypertension; Z86.16 Personal history of COVID-19; Z79.899 Other long term (current) drug therapy; Z88.8 Allergy status to other drugs, medicaments and biological substances
CPT/HCPCS: 36415; 71250; 80053; 84484; 85025; 85610; 85730; 93005; 99284; A9270

== ENCOUNTER 2024-03-22 03:35 | Emergency (ER) | payer MEDICARE, BC ==
[2024-03-22 04:07] VITALS: BP 150/92; PULSE 85
[2024-03-22] MEDS: SUMAtriptan 6 MG/0.5 ML SDV SUBCUT ONE (04:19)
[2024-03-22 04:20] LABS: BASOPHILS PERCENT AUTO 0.7 % (0.0-1.0); EOSINOPHILS PERCENT AUTO 1.7 % (1.0-3.0); HEMATOCRIT 43.1 % (40.0-54.0); HEMOGLOBIN 14.2 g/dL (14.0-18.0); MEAN CORPUSCULAR HEMOGLOBIN 32.6 pg (27.0-34.0); MEAN CORPUSCULAR HGB CONC 32.9 g/dL (33.0-35.0); MEAN CORPUSCULAR VOLUME 99.1 fL (80-100); MONOCYTES PERCENT AUTO 12.4 % (2-8); NEUTROPHILS PERCENT AUTO 78.2 % (42.2-75.2); PLATELET COUNT,PLT 182 10^3/uL (150-450); RED BLOOD CELL COUNT 4.35 10^6/uL (4.6-6.2); WHITE BLOOD CELL COUNT,WBC 4.6 10^3/uL (5.0-10.0)
[2024-03-22 04:39] LABS: A/G RATIO 1.1; ALBUMIN 3.3 g/dL (3.4-5.0); ANION GAP 11.1 mEq/L (7-13); BILIRUBIN TOTAL 0.4 mg/dL (0.2-1.0); BUN/CREATININE RATIO 14.1 (No establ ref range); CALCIUM 8.9 mg/dL (8.5-10.1); CREATININE 0.85 mg/dL (0.70-1.30); EST CRCL DRUG DOSING (CG) 76.68 mL/min; POTASSIUM,K 4.1 mmol/L (3.5-5.1); PROTEIN TOTAL,TP 6.3 g/dL (6.4-8.2)
[2024-03-22] MEDS: Take Home: Amoxicillin/Clavulanate K 875-125 MG Tab, 6 Tab Pack PO ONE (04:40)
== END 2024-03-22 05:03 | disposition home or self-care (01) ==
LOC: DL.ED 03:35
DX: G43.009 Migraine without aura, not intractable, without status migrainosus (principal); J01.90 Acute sinusitis, unspecified; B96.89 Other specified bacterial agents as the cause of diseases classified elsewhere; I10 Essential (primary) hypertension; Z86.16 Personal history of COVID-19; Z91.048 Other nonmedicinal substance allergy status; Z88.8 Allergy status to other drugs, medicaments and biological substances
CPT/HCPCS: 36415; 80053; 85025; 87428-QW; 96372; 99284; A9270-GY; J3030